=== PATIENT | female | born 1960 | race Caucasian/White ===

== ENCOUNTER → 2021-02-11 | Outpatient (CLI) | payer BC ==
--- NOTE | 2021-02-11 14:54 | Diagnostic Imaging Report ---
PROCEDURE: CT urinary tract, rule out kidney stone. TECHNIQUE: Multiple contiguous axial images were obtained through the abdomen and pelvis without the use of intravenous contrast. Auto Exposure Controls were utilized during the CT exam to meet ALARA standards for radiation dose reduction. INDICATION: Kidney stone. COMPARISON: No prior studies are available for comparison. FINDINGS: The lung bases are clear. The liver and gallbladder are unremarkable. There is no biliary ductal dilatation. The pancreas and spleen are unremarkable. No adrenal mass is detected. The right kidney is unremarkable. The left kidney contains a 10 mm nonobstructing calculus. No ureteral calculi or hydronephrosis is identified. The bladder is decompressed. No definite bladder calculi are detected. Aorta and iliac vessels are calcified but nonaneurysmal. The small and large bowel loops are normal caliber. There is no obstruction. No free fluid or fluid collection is seen. The uterus appears to be absent or atrophic. Bony structures are nonacute. IMPRESSION: A 10 mm nonobstructing left renal calculus. There is no evidence of ureteral calculi or hydronephrosis. Dictated by: Dictated on workstation # [id number]
== END ==
LOC: RAD FS 11:33
PROVIDERS: ATTEND Family Medicine
DX: N20.0 Calculus of kidney (principal)
CPT/HCPCS: 74176